=== PATIENT | female | born 1950 | race Caucasian/White ===

== ENCOUNTER 2018-03-19 13:02 | Outpatient (CLI) | payer MEDICARE ==
--- NOTE | 2018-03-22 18:22 | Mammography Report ---
Reason: SCREENING MAMMO Procedure Date: 03/19/2018 Accession Number: [id number] / [id number] Procedure: [facility] - Screening Mammo w/Demetri CPT Code: FULL RESULT: EXAM: Screening Mammo w/Demetri DATE: 03/19/2018 1:31 PM CLINICAL HISTORY: Routine screening TECHNIQUE: Bilateral CC and MLO views were obtained. COMPARISON: 07/19/2015 through 08/07/2008 FINDINGS: The breasts demonstrate scattered fibroglandular densities bilaterally. Bilateral breasts: There are no suspicious masses, calcifications or areas of distortion. IMPRESSION: Negative examination RECOMMENDATION: Routine annual screening unless otherwise clinically indicated. BI-RADS CATEGORY 1: Negative STANDARD QUALIFYING STATEMENTS: 1. This examination was not reviewed with the aid of Computer-Aided Detection (CAD). 2. A negative or benign imaging report should not preclude biopsy if clinically suspicious findings are present. 3. Dense breasts may obscure an underlying neoplasm. 4. This examination was reviewed with the aid of 3D breast imaging (tomosynthesis).
== END 2018-03-19 13:03 | disposition home or self-care (01) ==
LOC: DI 13:02
PROVIDERS: ATTEND Internal Medicine
DX: Z12.31 Encounter for screening mammogram for malignant neoplasm of breast (principal)
CPT/HCPCS: 77063; 77067

== ENCOUNTER 2019-06-05 16:30 | Outpatient (CLI) | payer MEDICARE ==
--- NOTE | 2019-06-06 16:26 | Ultrasound Report ---
Reason: PELVIC AND PERINEAL PAIN Procedure Date: 06/05/2019 Accession Number: [id number] / [id number] Procedure: US - Pelvic w/Transvaginal CPT Code: Final Report FULL RESULT: EXAM: PELVIC ULTRASOUND EXAM DATE: 06/05/2019 05:21 PM. CLINICAL HISTORY: Pelvic and perineal pain. COMPARISON: None. TECHNIQUE: Realtime transabdominal pelvic scan performed to identify the uterus and adnexa and as an overview of other pelvic structures, followed by transvaginal scan to provide greater detail of the uterus and adnexa, with static image documentation. FINDINGS: Uterus: 5.0 x 2.4 x 3.2 cm, volume 20 cc. Anteverted position. Normal overall size and echotexture. Masses: A posterior fundal intramural fibroid measures up to 0.9 cm. Endometrium: 2 mm. Normal. Cervix: Unremarkable. Right Ovary: 1.6 x 0.9 x 1.5 cm, volume 1.2 cc. Normal echotexture and blood flow. A 0.5 cm cyst without convincing solid component is seen within. Left Ovary: The ovary is not visualized despite best sonographic attempts transvaginally and transabdominally. Free Fluid: None. Other: None. IMPRESSION: Small intramural fibroid measuring up to 0.9 cm. 0.5 cm cyst in the right ovary without suspicious features. [facility]
== END 2019-06-05 16:31 | disposition home or self-care (01) ==
LOC: DI 16:30
PROVIDERS: ATTEND Internal Medicine
DX: D25.1 Intramural leiomyoma of uterus (principal); N83.201 Unspecified ovarian cyst, right side
CPT/HCPCS: 76830; 76856

== ENCOUNTER 2019-06-07 16:49 | Outpatient (CLI) | payer MEDICARE ==
[2019-06-07] MEDS ORDERED: IOVERSOL 320 50 ML VIAL ONE (17:01)
[2019-06-07] MEDS ORDERED: IOVERSOL 320 100 ML VIAL IVP ONE ×2 (17:01→19:38)
[2019-06-07 17:17] LABS: CREATININE 0.8 mg/dL (0.4-1.0)
--- NOTE | 2019-06-07 19:35 | CT Report ---
Reason: ABDOMEN PAIN Procedure Date: 06/07/2019 Accession Number: [id number] / [id number] Procedure: CT - Abdomen/Pelvis W CPT Code: Addended Final Report FULL RESULT: EXAM: CT ABDOMEN AND PELVIS EXAM DATE: 06/07/2019 06:26 PM. CLINICAL HISTORY: Abdomen pain. COMPARISONS: None. TECHNIQUE: Routine helical CT imaging was performed through the abdomen and pelvis. IV contrast: Optiray 320. Enteric contrast: No. Reconstructions: Coronal and sagittal. In accordance with CT protocol optimization, one or more of the following dose reduction techniques were utilized for this exam: automated exposure control, adjustment of mA and/or KV based on patient size, or use of iterative reconstructive technique. FINDINGS: Lung Bases: Unremarkable. Liver: There is a 1.6 cm left hepatic lobe cyst with several additional subcentimeter hypodensities likely representing cysts scattered throughout the liver. No suspicious liver mass. Gallbladder/Bile Ducts: Unremarkable. Spleen: Normal. Pancreas: Normal. Adrenal Glands: Normal. Kidneys: There is a 5 cm cyst at the upper pole of the left kidney. Several subcentimeter cortical hypodensities likely represent cysts are seen bilaterally. No hydronephrosis. Peritoneal Cavity/Bowel: Normal. No free fluid, free air or adenopathy. No masses or acute inflammatory process. The appendix has been removed. Pelvic Organs: The uterus is surgically absent. There is no pelvic mass or lymphadenopathy. No fluid collections. Vasculature: No aneurysms or other significant abnormality. Bones: Multilevel lumbar spine disk related degenerative changes. No acute bony abnormality. Other: None. IMPRESSION: 1. No bowel obstruction, fluid collection or acute inflammatory process. 2. Hepatic and bilateral renal cysts. [facility] The call report notification system was initiated by Dr. Cleve White at 07:33 PM on 06/07/2019. ADDENDUM: 06/14/19 10:52 This addendum is to reflect that the patient reports that she has not had her uterus removed. Images are consistent with this, coronal image 23 series 5 demonstrates structure compatible with a uterus.
[2019-06-07] MEDS ORDERED: IOVERSOL 320 50 ML VIAL PO ONE (19:38)
== END 2019-06-07 16:50 | disposition home or self-care (01) ==
LOC: DI 16:49
PROVIDERS: ATTEND Internal Medicine
DX: K76.89 Other specified diseases of liver (principal); Q61.02 Congenital multiple renal cysts; R79.89 Other specified abnormal findings of blood chemistry
CPT/HCPCS: 36415; 74177; 82565; Q9967